=== PATIENT | male | born 1965 | race African-American/Black ===

== ENCOUNTER 2024-04-16 23:30 | Emergency (ER) | payer BC, OTHER ==
[~2024-04-16] VITALS: Ht 182.9 cm; Wt 78.0 kg
[~2024-04-16 23:30] MED LIST: TRAMADOL
[2024-04-16 23:43] VITALS: BP 142/84; PULSE 77; RESP 18; TEMP 98.4; O2SAT 96
[2024-04-17 01:39] LABS: BASOPHILS % 1.2 % (0.0-2.0); HEMATOCRIT. 43.8 % (42.0-52.0); HEMOGLOBIN. 14.2 g/dL (14.0-18.0); LYMPHOCYTES % 27.4 % (20.0-50.0); MEAN CORPUSCULAR HEMOGLOBIN 27.7 pg (28.0-32.0); MEAN CORPUSCULAR HGB CONC 32.5 g/dL (31.0-37.0); MEAN CORPUSCULAR VOLUME 85.4 fL (80.0-94.0); MEAN PLATELET VOLUME 8.6 fl (7.4-10.4); MONOCYTES % 7.3 % (2.0-8.0); NEUTROPHILS % 63.1 % (40.0-76.0); PLATELET 334 x1000/uL (130-400); RED BLOOD CELL COUNT 5.13 mill/uL (4.7-6.1); RED CELL DISTRIBUTION WIDTH 14.6 % (11.6-14.6); WHITE BLOOD COUNT 6.8 x1000/uL (4.5-11.0)
[2024-04-17 01:46] LABS: CHLORIDE 111 mEq/L (98-107); SODIUM 145 mEq/L (136-145)
[2024-04-17 01:47] LABS: CALCIUM 8.8 mg/dL (8.7-10.4); CARBON DIOXIDE 25 mEq/L (21-32)
[2024-04-17 01:52] LABS: CREATININE 0.7 mg/dL (0.6-1.3); GLUCOSE 88 mg/dL (70-105); TROPONIN I HIGH SENSITIVITY 4 ng/L (3.0-53); UREA NITROGEN BLOOD 7 mg/dL (9-23)
== END 2024-04-17 06:26 | disposition home or self-care (01) ==
LOC: ER 23:30
DX: R07.9 Chest pain, unspecified (principal); R53.1 Weakness; R41.82 Altered mental status, unspecified; I10 Essential (primary) hypertension; Z86.73 Personal history of transient ischemic attack (TIA), and cerebral infarction without residual deficits
CPT/HCPCS: 36415; 71045; 80048; 84484; 85025; 99284